=== PATIENT | female | born 1980 | race Two or more races ===

== ENCOUNTER 2023-04-09 14:49 | Emergency (ER) | payer MEDICAID ==
[~2023-04-09] VITALS: Ht 154.9 cm; Wt 63.6 kg
[2023-04-09 15:00] VITALS: TEMP 98
[2023-04-09 15:47] VITALS: BP 139/93; PULSE 99; RESP 10
[2023-04-09 16:00] LABS: BASOPHILS % (AUTO) 0.5 % (0.0-2.0); EOSINOPHILS % (AUTO) 0.6 % (1.0-6.0); HEMOGLOBIN 13.5 g/dL (12.0-16.0); LYMPHOCYTES # (AUTO) 1.4 K/uL (1.0-4.8); LYMPHOCYTES % (AUTO) 19.5 % (22.0-44.0); MEAN CORPUSCULAR HEMOGLOBIN 30.7 pg (26.0-34.0); MEAN CORPUSCULAR HGB CONC 33.9 G/dL (31.0-37.0); MEAN CORPUSCULAR VOLUME 91 fL (80-100); MONOCYTES # (AUTO) 0.3 K/uL (0.1-1.0); MONOCYTES % (AUTO) 4.7 % (2.0-9.0); NEUTROPHILS # (AUTO) 5.2 K/uL (1.8-7.7); NEUTROPHILS % (AUTO) 74.7 % (40.0-70.0); PLATELET COUNT (AUTO) 209 K/uL (150-450); RED BLOOD CELL COUNT(AUTO) 4.41 MIL/uL (4.00-5.20); RED CELL DISTRIBUTION WIDTH 13.4 % (11.5-14.5)
[2023-04-09 16:05] LABS: ANION GAP 9 mmol/L (8-16); CALCIUM, TOTAL 10.1 mg/dL (8.8-10.5); CARBON DIOXIDE 30 mmol/L (22-29); CHLORIDE 102 mmol/L (98-107); CREATININE 0.55 mg/dL (0.60-1.30); GLOMERULAR FILTR. RATE CALC > 60 mL/min (>60); GLUCOSE,RANDOM 121 mg/dL (70-110); POTASSIUM 4.2 mmol/L (3.5-5.1); SODIUM SERUM 141 mmol/L (136-145); UREA NITROGEN, BLOOD 14 mg/dL (7-18)
[2023-04-09] MEDS: ACETAMINOPHEN 325 MG TABLET PO ONE (16:12)
[2023-04-09 16:13] LABS: TROPONIN I-HIGH SENSITIVITY 8 ng/L (<51)
[2023-04-09 16:21] LABS: B-TYPE NATRIURETIC PEPTIDE 15 pg/mL (0-100)
[2023-04-09 16:35] LABS: ALANINE AMINOTRANSFERASE 44 U/L (12-78); ALBUMIN 4.2 g/dL (3.4-5.0); ALKALINE PHOSPHATASE 87 U/L (46-116); ASPARTATE AMINOTRANSFERASE 24 U/L (15-37); BILIRUBIN,TOTAL 0.2 mg/dL (0.1-1.0); CREATINE KINASE, TOTAL ONLY 84 U/L (26-192); LIPASE 48 U/L (16-77); TOTAL PROTEIN, SERUM 8.1 g/dL (6.4-8.2)
== END 2023-04-09 17:20 | disposition home or self-care (01) ==
LOC: EMS 14:49
DX: R00.2 Palpitations (principal)
CPT/HCPCS: 71045; 80053; 82550; 83690; 83880; 84484; 84703; 85025; 93005; 99285; 36415-L1; 36415-TC